=== PATIENT | female | born 2000 | race African-American/Black ===

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

== ENCOUNTER 2020-01-14 13:17 | Emergency (ER) | payer OTHER ==
[~2020-01-14] VITALS: Ht 167.6 cm; Wt 49.9 kg
[~2020-01-14 13:17] MED LIST changes: +CEPHALEXIN500 MG ORAL; +PHENAZOPYRIDIN100 MG ORAL
[2020-01-14 13:34] VITALS: BP 124/79
--- NOTE | 2020-01-14 13:34 | NUR ---
ED Nurse Note: Pt walked in from home c/o burning and foul odor with urination x 3 days. Respirations even and unlabored on room air. Vitals stable as documented. A+Ox4, speaking in complete sentences.
[2020-01-14 13:57] LABS: APPEARANCE,URINE SLIGHTLY CLOUDY; BILIRUBIN, URINE NEGATIVE (NEGATIVE); COLOR,URINE PALE YELLOW; GLUCOSE, URINE (UA) NEGATIVE (NEGATIVE); KETONES,URINE NEGATIVE (NEGATIVE); LEUKOCYTE ESTERASE ,URINE 3+ (NEGATIVE); NITRITE,URINE POSITIVE (NEGATIVE); PH,URINE 7 (4.5-8.0); PROTEIN,URINE 1+ (NEGATIVE); UROBILINOGEN,URINE NORMAL MG/DL (0.0-1.0)
--- NOTE | 2020-01-14 13:58 | Emergency Room Report ---
History of Present Illness General Chief Complaint: Female Urogenital Problems Source: Patient Present Illness HPI 19-year-old female with no signal past medical history here complaining of 3 days of dysuria urinary frequency. Denies any hematuria, suprapubic pain and pressure, flank pain, nausea vomiting, fever and chills. Denies being sexually active. Reports her last menstrual period was 2 weeks ago and regular. Has not taken medication for symptom relief. Denies any vaginal discharge. Allergies: Coded Allergies: No Known Allergies (Unverified , 03/16/16) COVID-19 Screening Contact w/high risk pt: No Experienced COVID-19 symptoms?: No COVID-19 Testing performed P[employer]: No Patient History Past Medical History: see triage record Past Surgical History: none Pertinent Family History: none Now: No Immunizations: UTD Reviewed Nursing Documentation: PMH: Agreed; PSxH: Agreed Nursing Documentation-PMH Past Medical History: No History, Except For Hx Asthma: Yes Review of Systems All Other Systems: negative except mentioned in HPI Physical Exam Vital Signs Date Time Temp Pulse Resp B/P (MAP) Pulse Ox O2 Delivery O2 Flow Rate FiO2 01/14/20 13:22 97.0 103 16 130/83 (99) 100 Room Air Sp02 EP Interpretation: reviewed, normal General Appearance: no apparent distress, alert, GCS 15, non-toxic Head: normocephalic, atraumatic Eyes: bilateral eye normal inspection, bilateral eye PERRL ENT: hearing grossly normal, normal pharynx, no angioedema, normal voice Neck: full range of motion, supple/symm/no masses Respiratory: chest non-tender, lungs clear, normal breath sounds, speaking full sentences Cardiovascular #1: regular rate, rhythm, no edema Gastrointestinal: normal bowel sounds, non tender, soft, non-distended, no guarding, no rebound Genitourinary: no CVA tenderness Musculoskeletal: back normal Neurologic: alert, motor strength/tone normal, oriented x3, sensory intact, responsive, speech normal Psychiatric: judgement/insight normal, memory normal, mood/affect normal, no suicidal/homicidal ideation Skin: no rash Lymphatic: no adenopathy Medical Decision Making PA Attestation All my diagnosis and treatment plans were reviewed ad discussed with my supervising physician Dr. Frazier Diagnostic Impression: Primary Impression: UTI (urinary tract infection) ER Course 19-year-old female with no signal past medical history here complaining of 3 days of dysuria urinary frequency. Denies any hematuria, suprapubic pain and pressure, flank pain, nausea vomiting, fever and chills. Denies being sexually active. Reports her last menstrual period was 2 weeks ago and regular. Has not taken medication for symptom relief. Denies any vaginal discharge. Ddx considered but are not limited to: UTI, pyelonephritis, urinary incontinence, prolapsed bladder, chlamydia, gonorrhea Vital signs: are WNL, pt. is afebrile H&PE are most consistent with: UTI ORDERS: UA, urine cx, urine preg, keflex, pyridium ED INTERVENTIONS: None required at this time. DISCHARGE: At this time pt. is stable for d/c to home. Will provide printed patient care instructions, and any necessary prescriptions. Care plan and follow up instructions have been discussed with the patient prior to discharge. Patient follow primary care provider, take medication as directed, if worsening symptoms return to the emergency room Last Vital Signs Date Time Temp Pulse Resp B/P (MAP) Pulse Ox O2 Delivery O2 Flow Rate FiO2 01/14/20 13:22 97.0 103 16 130/83 (99) 100 Room Air Disposition: HOME, SELF-CARE Condition: Stable Referrals: NON PHYSICIAN (PCP) Patient Instructions: Urinary Tract Infection Additional Instructions: Patient follow primary care provider, take medication as directed, if worsening symptoms return to the emergency room Houston Crawford Jan 14, 2020 13:58
[2020-01-14] MEDS ORDERED: CEPHALEXIN500 MG ORAL (13:59)
[2020-01-14] MEDS ORDERED: PHENAZOPYRIDIN200 MG ORAL (13:59)
[2020-01-14 14:40] VITALS: BP 131/76
--- NOTE | 2020-01-14 14:40 | NUR ---
ED Nurse Note: Pt cleared by health care Provider for discharge. DC instructions/prescription were given and explained to pt and verbalized understanding of teachings. All medical deviecs such as ID band removed. Pt is AAO x4, ambulatory and left with all personal belongings.
== END 2020-01-14 14:40 | disposition home or self-care (01) ==
LOC: EMR 13:37
DX: N39.0 Urinary tract infection, site not specified (principal)
CPT/HCPCS: 81003; 81025; 87086; 87181; Z7502; 99283